=== PATIENT | male | born 1980 | race Hispanic/Latino ===

== ENCOUNTER → 2018-05-06 | Day surgery (SDC) | payer OTHER ==
[~2018-05-06] MED LIST: CEFAZOLIN SOD 2 GM/D5W 50ML 50 ML IV ONE; CRESTOR10 MG PO; DEXAMETHASONE SOD PHOS INJ 4 MG/ML VIAL ONE; EPINEPHRINE HCL INJ 1 MG/ML AMP ONE; FENTANYL CITRATE/PF 100MCG/2 ML INJ ONE; GLYCOPYRROLATE INJ 1MG/ 5 ML SYR ONE; KETOROLAC TROMETHAMINE 30 MG/ML VIAL ONE; LIDOCAINE 2%/ EPINEPHRINE 20ML MDV ONE; LIDOCAINE HCL 2% LOCAL INJ 5 ML SDV VIAL INJ ONE; LISINOPRIL10 MG PO; MIDAZOLAM HCL 2 MG/2 ML VIAL ONE; NEOSTIGMINE 5 MG/5ML SYR ONE; ONDANSETRON HCL INJ 2 MG/ML VIAL ONE; PROPOFOL IV EMULSION 10 MG/ML 20 ML VIAL ONE; ROPIVACAINE 0.5% 5 MG/ML 30 ML SDV ONE; SEVOFLURANE INHAL SOLN 250 ML PEN BTL ONE
--- OUTSIDE RECORDS SUMMARY | 2018-05-06 06:55 | XMS REPORT | Continuity of Care Document ---
Author Author [facility] Interface Address Unknown Phone Unavailable Problems Problem Status Onset Date Classification Date Reported Comments Source RT EL[place]OW EPICONDYLITIS Active 02/18/2018 [facility] [place] LEFT SHOULDER PAIN Active 06/05/2011 [facility] Medications Medication Details Route Status Patient Instructions Ordering Provider Order Date Source Allergies, Adverse Reactions, Alerts Substance Category Reaction Severity Reaction type Status Date Reported Comments Source Immunizations Immunization Date Given Site Status Last Updated Comments Source Results Order Name Results Value Reference Range Date Interpretation Comments Source Vital Signs Vital Sign Value Date Comments Source Encounters Location Location Details Encounter Type Encounter Number Reason For Visit Attending Provider ADM Date DC Date Status Source [facility] Outpatient [id number] LEFT SHOULDER PAIN EDWARD SARBJIT 06/05/2011 Active [facility] Procedures Procedure Code Date Perfomer Comments Source
[2018-05-06 12:50] VITALS: BP 110/65
--- NOTE | 2018-05-07 15:25 | Operative Report ---
DATE OF PROCEDURE: May 06, 2018 PREOPERATIVE DIAGNOSIS: Left shoulder labral tear. POSTOPERATIVE DIAGNOSES 1. Left shoulder synovitis. 2. Left shoulder labral tear. PROCEDURES PERFORMED: The patient underwent a 1. Left shoulder examination under anesthesia. 2. Left shoulder arthroscopy. 3. Left shoulder arthroscopic debridement. 4. Left shoulder arthroscopic biceps tenodesis. 5. Bursectomy. DIETARY COOK: Carolin Guardado. ANESTHESIA: General endotracheal intubation anesthesia. INTRAVENOUS FLUIDS: As per the anesthesia record. DESCRIPTION OF PROCEDURE: Mr. Laura was taken to the operating room and placed in the supine position on the operating room table. Following induction of general anesthesia and an interscalene block, the patient's table was converted to a beach chair type position. Examination of the left upper extremity demonstrated a normal-appearing shoulder. There was full passive range of motion of the shoulder joint. There was no evidence of instability. The patient's upper extremity was prepped and draped in standard surgical fashion. Standard anterior and posterolateral incisions were created. The scope was placed within the shoulder joint atraumatically. Examination of the glenohumeral articulation demonstrated no evidence of significant pathology. There were no loose bodies in the shoulder joint. The rotator cuff was firmly attached to the greater tuberosity. The subscapularis muscle was also attached to the lesser tuberosity, and there was no evidence of injury. Examination of the labrum demonstrated a type 4 labral tear. There was extensive damage to the biceps anchor with greater than 50% of the anchor being involved in the labral injury. There was also maceration in a severely deficient posterior superior labrum with severe damage to the labral tissue. A shaver was placed in the shoulder joint, and the labral tear was debrided. There was also diffuse synovitis about the shoulder, and this was debrided at this time. Examination of the biceps anchor demonstrated severe damage at the anchor and a severely deficient posterior superior labral tissue. Given the extensive nature of the damage, the decision was made to create an all-inside biceps tenodesis. The articular surface of the rotator interval was debrided. Sutures were shuttled through the biceps tendon at the level of the rotator interval, and then the biceps tendon was released from its insertion into the glenoid. This was drawn into the rotator interval and debrided in such a way that it would not interfere with motion of the shoulder joint. The shoulder was then deflated of its sterile normal saline. The scope was transferred to the subacromial space. A lateral portal was created without difficulty. Significant bursal tissue was encountered. Significant bursal inflammation was encountered. A shaver was placed in the shoulder joint through a lateral portal. A bursectomy was performed. The sutures traversing the rotator interval were easily identified and drawn through the portal. The biceps tenodesis was completed by tying the sutures firmly over the rotator interval. The shoulder was inflated with sterile normal saline. The portal sites were closed. Sterile dressings were applied, and the patient was provided a shoulder immobilizer, awakened and taken to the postanesthesia care unit in stable condition. Carolin Guardado acted as the first cook for this case and was necessary for both prepping and draping the patient as well as the positioning of the arm and the passage of suture that allowed this case to be successful. Job#: [id number]
== END | disposition home or self-care (01) ==
LOC: OR 06:53
PROVIDERS: ATTEND Specialist
DX: S43.432A Superior glenoid labrum lesion of left shoulder, initial encounter (principal); M65.812 Other synovitis and tenosynovitis, left shoulder; S93.491A Sprain of other ligament of right ankle, initial encounter; E78.6 Lipoprotein deficiency; X58.XXXA Exposure to other specified factors, initial encounter; Z68.35 Body mass index [BMI] 35.0-35.9, adult
CPT/HCPCS: 29828; J0171; J0690; J1100; J1885; J2001 ×2; J2250; J2405; J2704; J2795; J3490